=== PATIENT | female | born 1985 | race Caucasian/White ===

== ENCOUNTER 2019-03-17 11:54 | Observation (INO) | payer OTHER ==
[~2019-03-17] VITALS: Ht 167.6 cm; Wt 108.5 kg
[2019-03-17] MEDS ORDERED: ZOLO25TA PO (12:14)
[2019-03-17] MEDS ORDERED: METOCLOPRAMIDE INJ 10MG/2ML VIAL (J2765) IV ONE (13:30)
[2019-03-17] MEDS ORDERED: NS 1,000 ML IV ONE (13:30)
[2019-03-17 14:20] LABS: BASO % 0.2 % (0.0-1.0); EOS # 0.1 10^3/uL (0.0-0.50); EOS % 0.7 % (0.0-3.0); HEMATOCRIT 37.4 % (36.0-47.0); HEMOGLOBIN 12.5 g/dl (12.0-15.5); LYMPH # 1.6 10^3/uL (1.5-4.5); LYMPH % 17.4 % (24.0-44.0); MEAN CORPUSCULAR HEMOGLOBIN 31.8 pg (27.0-33.0); MEAN CORPUSCULAR HGB CONC 33.4 g/dl (32.0-36.5); MEAN CORPUSCULAR VOLUME 95.2 fl (80.0-96.0); MONO # 0.5 10^3/uL (0.0-0.8); MONO % 5.7 % (0.0-5.0); NEUTROPHILS # 6.7 10^3/uL (1.8-7.7); NEUTROPHILS % 74.9 % (36.0-66.0); PLATELET COUNT, AUTOMATED 198 10^3/uL (150-450); RED BLOOD COUNT 3.93 10^6/uL (4.00-5.40)
[2019-03-17 14:29] LABS: INR 0.93; PROTHROMBIN TIME 12.6 SECONDS (12.1-14.4)
[2019-03-17 14:30] LABS: PARTIAL THROMBOPLASTIN TIME 26.1 SECONDS (25.4-37.6)
[2019-03-17 14:57] LABS: ALBUMIN 2.8 GM/DL (3.2-5.2); ALT/SGPT 17 U/L (12-78); BILIRUBIN,TOTAL 0.3 MG/DL (0.2-1.0); BLOOD UREA NITROGEN 10 MG/DL (7-18); CALCIUM LEVEL 8.9 MG/DL (8.5-10.1); CARBON DIOXIDE LEVEL 20 MEQ/L (21-32); CHLORIDE LEVEL 106 MEQ/L (98-107); CREATININE FOR GFR 0.39 MG/DL (0.55-1.30); FREE T4 0.85 NG/DL (0.76-1.46); GLOMERULAR FILTRATION RATE > 60.0 (>60); GLUCOSE, FASTING 71 MG/DL (70-100); SODIUM LEVEL 137 MEQ/L (136-145); TOTAL PROTEIN 6.1 GM/DL (6.4-8.2)
[2019-03-17] MEDS ORDERED: METOCLOPRAMIDE INJ 10MG/2ML VIAL (J2765) IV PRN (15:30)
--- NOTE | 2019-03-17 15:51 | REP ---
MRA BRAIN WITHOUT CONTRAST: HISTORY: Infarction. 3D [id number] MR angiography was performed at the level of the [place]. There is no aneurysm or arteriovenous malformation. Mild atherosclerotic disease involves a branch of the right middle cerebral artery trifurcation. Major intracranial vessels are patent. The left vertebral artery is dominant. IMPRESSION: 1. There is no aneurysm or arteriovenous malformation.2. Atherosclerotic disease as described above. Electronically Signed by Atif Gatica MD 03/17/2019 03:58 P
--- NOTE | 2019-03-17 15:51 | HPEPDOC ---
General Date of Admission March 17, 2019 at 15:21 Date of Service: March 17, 2019 Attending Physician: SHANTI ZELAYA MD Chief Complaint The patient is a 34-year-old female admitted with a reason for visit of Migrane Aura Without Headache. Source: Patient, Family Exam Limitations: No limitations Timing/Duration: Unsure Severity: Severe Associated Symptoms: Nausea, Vomiting, Dizziness History of Present Illness 33 years old, 28 weeks , white female with no other past medical history presented with numbness of face, arm flutters in the eyes. Dizziness with nausea, vomiting and headache and decided to come to ER, which she is being admitted with migraine headache versus TIA in and for observation. Patient is clinically much better now. No weakness. Sensory or motor loss. No chest pain, shortness of breath, etc. Home Medications Scheduled No122/Iron/Folic Acid ( Multi Tablet) 1 Each Tablet, 1 TAB PO QHS, (Reported) Sertraline Hcl (Zoloft) 25 Mg Tablet, 25 MG PO DAILY, (Reported) Scheduled PRN Acetaminophen (Tylenol Extra Strength) 500 Mg Tablet, 1,000 MG PO TID PRN for PAIN, (Reported) Allergies Coded Allergies: No Known Allergies (Unverified , 03/17/19) Past Medical History Medical History None Surgical History Right wrist surgery Family History Significant Family History: No pertinent family hx Social History * Smoker: Denies Alcohol: Denies Drugs: denies A-FIB/CHADSVASC A-FIB History Current/History of A-Fib/PAF?: No Current Oral Anticoagulant The: No Review of Systems Constitutional: Reports: Other (headache) Eyes: Denies: Pain, Vision change, Conjunctivae inflammation, Eyelid inflammation, Redness, Other ENT: Denies: Head Aches, Ear Pain, Dysphagia, Sinus Congestion, Post Nasal Drip, Sore Throat, Epistaxis, Other Symptoms Skin: Denies: Rash, Lesions, Jaundice, Bruising, Itching, Dry, Breakdown, Nail Changes, Other Pulmonary: Denies: Dyspnea, Cough, Pleuritic Chest Pain, Other Symptoms Cardiovascular: Denies: Chest Pain, Palpitations, Orthopnea, Paroxysmal Noc. Dyspnea, Edema, Lt Headedness, Other Symptoms Gastrointestinal: Reports: Nausea, Vomiting; Denies: Abdominal Pain, Diarrhea, Constipation, Melena, Hematochezia, Other Symptoms Genitourinary: Denies: Dysuria, Frequency, Incontinence, Hematuria, Retention, Other Symptoms Hematologic: Denies: Bruising, Bleeding Excessively, Petecchia, Purpura, Enlarged Lymph Nodes, Other Hematologic Endocrine: Denies: Polydipsia, Polyphagia, Polyuria, Heat Intolerance, Cold Intolerance, Other Endocrine Sx Musculoskeletal: Denies: Neck Pain, Back Pain, Shoulder Pain, Arm Pain, Hand Pain, Leg Pain, Foot Pain, Joint Pain, Muscle Pain, Spasms, Other Symptoms Neurological: Reports: Other Symptoms (, dizziness); Denies: Weakness, Numbness, Incoordination, Change in speech, Confusion, Seizures Psych: Denies: Mood Normal, Anxiety, Depression, Memory Issues, Thoughts of Self Harm, Anger, Thoughts of Harming Other, Other Psych Physical Examination General Exam: Positive: Alert, Cooperative Eye Exam: Positive: PERRLA, Conjunctiva & lids normal ENT Exam: Positive: Atraumatic Neck Exam: Positive: Supple Chest Exam: Positive: Clear to auscultation, Normal air movement Heart Exam: Positive: Rate Normal, Normal S1, Normal S2 Abdomen Exam: Positive: Normal bowel sounds Extremity Exam: Positive: Clubbing Skin Exam: Positive: Nl turgor and temperature Neuro Exam: Positive: Normal Gait, Cranial Nerves 3-12 NL, Reflexes 2+ Psych Exam: Positive: Mental status NL, Mood NL Vital Signs Vital Signs Date Time Temp Pulse Resp B/P (MAP) Pulse Ox O2 Delivery O2 Flow Rate FiO2 03/17/19 14:32 91 122/72 (89) 93 128/69 (88) 93 126/66 (86) 03/17/19 14:30 98 03/17/19 11:55 97.6 17 Room Air Laboratory Data Labs 24H Laboratory Tests 2 03/17/19 14:03: Immature Granulocyte % (Auto) 1.1, White Blood Count 9.0, Red Blood Count 3.93L, Hemoglobin 12.5, Hematocrit 37.4, Mean Corpuscular Volume 95.2, Mean Corpuscular Hemoglobin 31.8, Mean Corpuscular Hemoglobin Concent 33.4, Red Cell Distribution Width 13.2, Platelet Count 198, Neutrophils (%) (Auto) 74.9H, Lymphocytes (%) (Auto) 17.4L, Monocytes (%) (Auto) 5.7H, Eosinophils (%) (Auto) 0.7, Basophils (%) (Auto) 0.2, Neutrophils # (Auto) 6.7, Lymphocytes # (Auto) 1.6, Monocytes # (Auto) 0.5, Eosinophils # (Auto) 0.1, Basophils # (Auto) 0.0, Nucleated Red Blood Cells % (auto) 0.0, Prothrombin Time 12.6, Prothromb Time International Ratio 0.93, Activated Partial Thromboplast Time 26.1, Anion Gap 11, Glomerular Filtration Rate > 60.0, Blood Urea Nitrogen 10, Creatinine 0.39L, Sodium Level 137, Potassium Level 4.0, Chloride Level 106, Carbon Dioxide Level 20L, Calcium Level 8.9, Aspartate Amino Transf (AST/SGOT) 12, Alanine Aminotransferase (ALT/SGPT) 17, Alkaline Phosphatase 65, Total Bilirubin 0.3, Total Protein 6.1L, Albumin 2.8L, Albumin/Globulin Ratio 0.85L, Thyroid Stimulating Hormone (TSH) 1.440, Free Thyroxine 0.85 CBC/BMP Laboratory Tests 03/17/19 14:03 Red Blood Count 3.93 L, Mean Corpuscular Volume 95.2, Mean Corpuscular Hemoglobin 31.8, Mean Corpuscular Hemoglobin Concent 33.4, Red Cell Distribution Width 13.2, Neutrophils (%) (Auto) 74.9 H, Lymphocytes (%) (Auto) 17.4 L, Monocytes (%) (Auto) 5.7 H, Eosinophils (%) (Auto) 0.7, Basophils (%) (Auto) 0.2, Neutrophils # (Auto) 6.7, Lymphocytes # (Auto) 1.6, Monocytes # (Auto) 0.5, Eosinophils # (Auto) 0.1, Basophils # (Auto) 0.0, Calcium Level 8.9, Aspartate Amino Transf (AST/SGOT) 12, Alanine Aminotransferase (ALT/SGPT) 17, Alkaline Phosphatase 65, Total Bilirubin 0.3, Total Protein 6.1 L, Albumin 2.8 L Problems (1) Migraine headache Status: Acute Problem Text: Most likely migraine headache. Doubt TIA, as this no clinical history consistent with possible TIA or stroke Neurolo and OB consult were called from ED and will be seen in the hospital MRI and MRA were done reports are still pending IV fluid normal saline at 100 mL per hour Reglan 1 g every 6 hours when necessary , Tylenol 650 mg by mouth every 4 hours when necessary Observation for 24 hours DVT prophylaxis with bilateral SCDs Possible discharge in a.m. Plan / VTE VTE Prophylaxis Ordered?: Yes SHANTI ZELAYA MD March 17, 2019 15:51
[2019-03-17] MEDS ORDERED: ACET-897 PO (15:52)
[2019-03-17] MEDS ORDERED: MULTTAB20 PO (15:52)
--- NOTE | 2019-03-17 15:55 | REP ---
MR Brain without contrast HISTORY: Infarction Several punctate areas of increased signal intensity on T2-weighted images is present in the subcortical white matter of the right frontal lobe. There is no intraparenchymal hemorrhage, infarct, mass or midline shift. The cerebellar tonsils extend 3 mm inferior through the foramen magnum. The ventricular system is normal in appearance. There is no extra cerebral collection. The sinuses are clear. IMPRESSION: There are several punctate areas of increased signal intensity in the subcortical white matter of the right frontal lobe. This is a nonspecific finding. Electronically Signed by Atif Gatica MD 03/17/2019 03:47 P
--- NOTE | 2019-03-17 15:59 | REP ---
MRA Brain without contrast History: Infarction 3-D phase contrast MR angiography was performed with a velocity encoding of 20 cm/sec. There are no filling defects in the deep venous system or dural sinuses. There is no sinus thrombosis. There are no stenotic lesions. Impression: There is no sinus thrombosis. Electronically Signed by Atif Gatica MD 03/17/2019 03:50 P
[2019-03-17] MEDS ORDERED: ACETAMINOPHEN TAB 650MG DOSE (2X325MG) PO PRN (16:00)
[2019-03-17 16:45] VITALS: BP 128/69
--- NOTE | 2019-03-17 18:04 | CR.PDOC ---
General Date of Consultation: March 17, 2019 Referring Provider: SHANTI ZELAYA MD Attending Physician: JASON OCAMPO MD Consultation 28 weeks . Seen yesterday in the OB clinic. Presented with numbness of face, fluttering in the eyes, dizziness with nausea, vomiting and headache and decided to come to the ER, was admitted with migraine headache versus TIA in and for observation by the hospitalist service. Has been seen by the consulting Neurologist. She states she is feeling much better now. No weakness. Sensory or motor loss. No chest pain, shortness of breath, etc. Feeling the baby move all the time, no VB or abnl vag d/c and no cramping/contraction pains. Spoke with the neurologist and he has reviewed her scans/reads and is confident of no cavernous sinus thrombosis or other intracranial vessel issue. He is confident this is a complex migraine. Of note, pt states these have been happening more frequently the last 3 weeks but has not really told her OB provider about it. a/p: Complex migraine. Many thx to the hospitalist service for admitting her, also appreciate the neurologists's input. I believe she can go home even tonight now that her w/u is complete and I rec starting Mag Oxide 400 mg BID for LYNN propohyhlaxis/hopeful prevention in , also will consult [facility] Botox for [facility]'s service at [place], very safe in preg and very effective as well. Will also rx fioricet for breakthru LYNN pain, d/w pt appropriate use (no driving/heavy machinery, etc). Sessions Vital Signs/I&O Vital Signs Date Time Temp Pulse Resp B/P (MAP) Pulse Ox O2 Delivery O2 Flow Rate FiO2 03/17/19 16:45 97.9 91 19 128/69 (88) 99 03/17/19 16:24 Room Air Laboratory Data Labs 24H Laboratory Tests 2 03/17/19 14:03: Immature Granulocyte % (Auto) 1.1, White Blood Count 9.0, Red Blood Count 3.93L, Hemoglobin 12.5, Hematocrit 37.4, Mean Corpuscular Volume 95.2, Mean Corpuscular Hemoglobin 31.8, Mean Corpuscular Hemoglobin Concent 33.4, Red Cell Distribution Width 13.2, Platelet Count 198, Neutrophils (%) (Auto) 74.9H, Lymphocytes (%) (Auto) 17.4L, Monocytes (%) (Auto) 5.7H, Eosinophils (%) (Auto) 0.7, Basophils (%) (Auto) 0.2, Neutrophils # (Auto) 6.7, Lymphocytes # (Auto) 1.6, Monocytes # (Auto) 0.5, Eosinophils # (Auto) 0.1, Basophils # (Auto) 0.0, Nucleated Red Blood Cells % (auto) 0.0, Prothrombin Time 12.6, Prothromb Time International Ratio 0.93, Activated Partial Thromboplast Time 26.1, Anion Gap 11, Glomerular Filtration Rate > 60.0, Blood Urea Nitrogen 10, Creatinine 0.39L, Sodium Level 137, Potassium Level 4.0, Chloride Level 106, Carbon Dioxide Level 20L, Calcium Level 8.9, Aspartate Amino Transf (AST/SGOT) 12, Alanine Aminotransferase (ALT/SGPT) 17, Alkaline Phosphatase 65, Total Bilirubin 0.3, Total Protein 6.1L, Albumin 2.8L, Albumin/Globulin Ratio 0.85L, Thyroid Stimulating Hormone (TSH) 1.440, Free Thyroxine 0.85 CBC/BMP Laboratory Tests 03/17/19 14:03 Red Blood Count 3.93 L, Mean Corpuscular Volume 95.2, Mean Corpuscular Hemoglobin 31.8, Mean Corpuscular Hemoglobin Concent 33.4, Red Cell Distribution Width 13.2, Neutrophils (%) (Auto) 74.9 H, Lymphocytes (%) (Auto) 17.4 L, Monocytes (%) (Auto) 5.7 H, Eosinophils (%) (Auto) 0.7, Basophils (%) (Auto) 0.2, Neutrophils # (Auto) 6.7, Lymphocytes # (Auto) 1.6, Monocytes # (Auto) 0.5, Eosinophils # (Auto) 0.1, Basophils # (Auto) 0.0, Calcium Level 8.9, Aspartate Amino Transf (AST/SGOT) 12, Alanine Aminotransferase (ALT/SGPT) 17, Alkaline Phosphatase 65, Total Bilirubin 0.3, Total Protein 6.1 L, Albumin 2.8 L Allergies Coded Allergies: No Known Allergies (Unverified , 03/17/19) Home Medications Scheduled No122/Iron/Folic Acid ( Multi Tablet) 1 Each Tablet, 1 TAB PO QHS, (Reported) Sertraline Hcl (Zoloft) 25 Mg Tablet, 25 MG PO DAILY, (Reported) Scheduled PRN Acetaminophen (Tylenol Extra Strength) 500 Mg Tablet, 1,000 MG PO TID PRN for PAIN, (Reported) JASON OCAMPO MD March 17, 2019 18:04
[2019-03-17] MEDS: NS 1,000 ML IV SCH (18:53)
[2019-03-17 20:00] VITALS: BP 117/58
[2019-03-18] MEDS: NS 1,000 ML IV SCH (03:06)
--- NOTE | 2019-03-18 06:08 | ECGEPIP ---
[facility] - ED Test Date: 2019-03-17 Pat Name: ZEN OLVERA Department: Room: - Gender: F [employer]: [place] : 1985 Requested By: LUKAS Chávez Order Number: [id number] Reading MD: Arvin Randall Measurements Intervals [place] Rate: 86 P: 31 DC: 146 QRS: 44 QRSD: 79 T: 29 QT: 376 QTc: 451 Interpretive Statements SINUS RHYTHM NO PRIORS FOR COMPARISON Electronically Signed on 03-18-2019 6:08:04 EDT by Arvin Randall
[2019-03-18 08:00] VITALS: BP 130/64
--- NOTE | 2019-03-18 11:00 | DS.PDOC ---
Discharge Summary General Date of Admission March 17, 2019 at 15:21 Date of Discharge 03/18/19 Attending Physician: SHANTI ZELAYA MD Discharge Summary PROCEDURES PERFORMED DURING STAY: None. ADMITTING DIAGNOSES: 1. Headache, numbness of face. DISCHARGE DIAGNOSES: 1. Migraine headache. COMPLICATIONS/CHIEF COMPLAINT: Migrane Aura With Headache. HISTORY OF PRESENT ILLNESS: 33 years old, 28 weeks , white female with no other past medical history presented with numbness of face, arm flutters in the eyes. Dizziness with nausea, vomiting and headache and decided to come to ER, which she is being admitted with migraine headache versus TIA in and for observation. Patient is clinically much better now. No weakness. Sensory or motor loss. No chest pain, shortness of breath, etc. . HOSPITAL COURSE: Patient was admitted with the headache, possible numbness to rule out TIA versus migraine headache. Patient had MRI of the brain and MRA done which was essentially within normal limits. Patient was seen by neurology and by OB. Discussed with OB patient is evidence of migraine and she will be discharged home today as she is completely asymptomatic at the present time. Patient has no headache, no nausea, vomiting and can be discharged home. Follow with her OB, sessions as an outpatient. Neurology consult. Please see the report dictated above. DISCHARGE MEDICATIONS: Please see below. ALLERGIES: Please see below. PHYSICAL EXAMINATION ON DISCHARGE: VITAL SIGNS: Please see below. GENERAL: Within normal limits. HEENT: PERRLA NECK:, Supple, no JVD CARDIOVASCULAR EXAMINATION:. S1, S2, regular RESPIRATORY EXAMINATION: Clear to A&P ABDOMINAL EXAMINATION:. Soft, nontender, bowel sound present EXTREMITIES:. No clubbing, cyanosis or edema SKIN: Within normal limits with NEUROLOGICAL EXAMINATION: Normal. No focal motor or sensory deficit PSYCHIATRIC EXAMINATION: Normal LABORATORY DATA: Please see below. IMAGING: As per EMR PROGNOSIS: Good ACTIVITY: As tolerated. DIET: Regular DISCHARGE PLAN: Home DISPOSITION: 01 Home, Self-Care. DISCHARGE INSTRUCTIONS: 1. As above. ITEMS TO FOLLOWUP ON ON OUTPATIENT: 1.. As above. DISCHARGE CONDITION: Stable. TIME SPENT ON DISCHARGE: Greater than 35 minutes. Vital Signs/I&Os Vital Signs Date Time Temp Pulse Resp B/P (MAP) Pulse Ox O2 Delivery O2 Flow Rate FiO2 03/18/19 08:00 98.5 93 17 130/64 (86) 97 03/17/19 16:24 Room Air I&O- Last 24 Hours up to 6 AM 03/18/19 06:00 Intake Total 2485 ml Output Total 1000 ml Balance 1485 ml Laboratory Data Labs 24H Laboratory Tests 2 03/17/19 14:03: Immature Granulocyte % (Auto) 1.1, White Blood Count 9.0, Red Blood Count 3.93L, Hemoglobin 12.5, Hematocrit 37.4, Mean Corpuscular Volume 95.2, Mean Corpuscular Hemoglobin 31.8, Mean Corpuscular Hemoglobin Concent 33.4, Red Cell Distribution Width 13.2, Platelet Count 198, Neutrophils (%) (Auto) 74.9H, Lymphocytes (%) (Auto) 17.4L, Monocytes (%) (Auto) 5.7H, Eosinophils (%) (Auto) 0.7, Basophils (%) (Auto) 0.2, Neutrophils # (Auto) 6.7, Lymphocytes # (Auto) 1.6, Monocytes # (Auto) 0.5, Eosinophils # (Auto) 0.1, Basophils # (Auto) 0.0, Nucleated Red Blo od Cells % (auto) 0.0, Prothrombin Time 12.6, Prothromb Time International Ratio 0.93, Activated Partial Thromboplast Time 26.1, Anion Gap 11, Glomerular Filtration Rate > 60.0, Blood Urea Nitrogen 10, Creatinine 0.39L, Sodium Level 137, Potassium Level 4.0, Chloride Level 106, Carbon Dioxide Level 20L, Calcium Level 8.9, Aspartate Amino Transf (AST/SGOT) 12, Alanine Aminotransferase (ALT/SGPT) 17, Alkaline Phosphatase 65, Total Bilirubin 0.3, Total Protein 6.1L, Albumin 2.8L, Albumin/Globulin Ratio 0.85L, Thyroid Stimulating Hormone (TSH) 1.440, Free Thyroxine 0.85 CBC/BMP Laboratory Tests 03/17/19 14:03 Red Blood Count 3.93 L, Mean Corpuscular Volume 95.2, Mean Corpuscular Hemoglobin 31.8, Mean Corpuscular Hemoglobin Concent 33.4, Red Cell Distribution Width 13.2, Neutrophils (%) (Auto) 74.9 H, Lymphocytes (%) (Auto) 17.4 L, Monocytes (%) (Auto) 5.7 H, Eosinophils (%) (Auto) 0.7, Basophils (%) (Auto) 0.2, Neutrophils # (Auto) 6.7, Lymphocytes # (Auto) 1.6, Monocytes # (Auto) 0.5, Eosinophils # (Auto) 0.1, Basophils # (Auto) 0.0, Calcium Level 8.9, Aspartate Amino Transf (AST/SGOT) 12, Alanine Aminotransferase (ALT/SGPT) 17, Alkaline Phosphatase 65, Total Bilirubin 0.3, Total Protein 6.1 L, Albumin 2.8 L Discharge Medications Scheduled No122/Iron/Folic Acid ( Multi Tablet) 1 Each Tablet, 1 TAB PO QHS, (Reported) Sertraline Hcl (Zoloft) 25 Mg Tablet, 25 MG PO DAILY, (Reported) Scheduled PRN Acetaminophen (Tylenol Extra Strength) 500 Mg Tablet, 1,000 MG PO TID PRN for PAIN, (Reported) Allergies Coded Allergies: No Known Allergies (Unverified , 03/17/19) SHANTI ZELAYA MD March 18, 2019 11:00
--- NOTE | 2019-03-19 09:50 | CR ---
DATE OF CONSULTATION: 03/17/2019 REFERRING PROVIDER: Dr. Mak Tompkins REASON FOR CONSULTATION: Is suspected complex migraine versus transient ischemic attack (TIA). The patient is a 34-year-old, 28-week-old female, with past medical history significant for migraines. The patient states that earlier in the day she developed a significant headache. The patient states that she had an obstetrics (OB) appointment earlier in the day. She started seeing spots out of her left visual field. She has seen these before. She has had a few of these same similar headaches over the last few weeks. The patient took a shower, got ready to leave. She was driving to her work. She then developed a sensation of numbness that started in her fingertips and traveled up her left hand and arm to her face. The patient states that this took several minutes for the paresthesias to expand. The patient started to panic and called her . The patient was admitted to [facility]. MRI of the brain was negative for stroke. MR venogram was negative for any cerebral venous thrombus and MR angiogram was negative any aneurysm. The patient subsequently was given IV fluids and medication. Her headaches then improved. Symptoms of numbness have completely resolved. The patient vision is also improved. Given the nature of the cortical depression and slow-moving paresthesias up her hand and arm to her face the patient likely had a complex migraine as opposed to a TIA. The patient does not need to be on stroke prophylactic dose of aspirin due to this particular symptom. She could benefit from magnesium oxide 4 mg, riboflavin 200 mg daily while to prevent similar migraines. The patient is not interested in any other prescription strength migraine prophylactic medicine while she is at this time. ALLERGIES: None. PRESENT MEDICATIONS: Sertraline 25 mg by mouth every day. vitamins. PAST MEDICAL HISTORY: Migraine headaches. PAST SURGICAL HISTORY: Right wrist surgery. FAMILY HISTORY: Noncontributory. REVIEW OF SYSTEMS: 14-point review of systems was obtained and is negative except as per HPI. SOCIAL HISTORY: The patient is a former smoker and denies use of any alcohol or illicit drugs. PHYSICAL EXAMINATION: Blood pressure is 125/60, pulse rate 98, respiratory rate is 18, temperature is 98.6 degrees Fahrenheit, oxygenation 97% on room air. The patient is awake, alert, oriented to person, place and time. Speech language comprehension and repetition are intact. Pupils are 3 mm round, reactive to light. Extraocular movements are intact in all directions. Sensation V1, V2, V3 is intact to light touch. No facial asymmetry to activation. Palate elevates symmetrically. Tongue is midline. No weakness of sternocleidomastoids bilaterally. Hearing is subjectively equal to finger rub. There is no pronator drift. Strength is 5/5 including bilateral deltoids, biceps, triceps, handgrip, iliopsoas, quadriceps and tibialis. Deep tendon reflexes are 2+ throughout. Babinski signs are absent. Sensory is intact to light touch in all four extremities. Coordination: Normal [id number] without any signs of ataxia or dysmetria. Gait deferred. ASSESSMENT: 1. Complex migraine with left-sided hemisensory loss and left eye visual loss. Patient has migraines with aura. The patient was noted to have mild right MCA atherosclerosis. The patient should optimize hyperlipidemia management as an outpatient. Recommend starting magnesium oxide 4 mg by mouth daily, riboflavin 200 mg by mouth every day for migraine prophylaxis. The patient can follow in the neurology clinic as an outpatient. The patient seems to have returned back to baseline without any neurological deficit at this time. The patient can be discharged when cleared by OB and the medical team.
== END 2019-03-18 09:50 | disposition home or self-care (01) ==
LOC: M ED 11:54 → M ED INP 15:21 → M PED 16:45
PROVIDERS: ADMIT Internal Medicine; ATTEND Internal Medicine
DX: O99.352 Diseases of the nervous system complicating pregnancy, second trimester (principal); G43.809 Other migraine, not intractable, without status migrainosus; I67.2 Cerebral atherosclerosis; R11.2 Nausea with vomiting, unspecified; Z3A.28 28 weeks gestation of pregnancy; Z79.899 Other long term (current) drug therapy; Z87.891 Personal history of nicotine dependence
CPT/HCPCS: 70544; 70551; 80053; 84439; 84443; 85025; 85610; 85730; 93005; 93041; 94760; 96361; 96374; 99285; J2765

== ENCOUNTER 2019-06-04 07:09 | Inpatient (IN) | payer OTHER ==
[~2019-06-04] VITALS: Ht 167.6 cm; Wt 109.3 kg
[2019-06-04] VITALS (13 sets, daily range): BP systolic 90–139; BP diastolic 49–73
[~2019-06-04 07:09] MED LIST: ACET-897 PO; MULTTAB20 PO; ZOLO25TA PO
[2019-06-04] MEDS ORDERED: TUMS500C PO (07:33)
--- NOTE | 2019-06-04 09:25 | HPEPDOC ---
Obstetrical History & Physical General Date of Admission Jun 04, 2019 at 07:09 History of Present Illness 34 yo at 39+3 weeks gestation by LMP of 01Sep2018 c/w 9+2 week US on presents to L&D today for an IOL for GDMA1 and AMA. Paty reports feeling well today and has no complaints. She denies any vaginal bleeding, leakage of fluid or contraction pain. She endorses excellent movement. Chief Complaint: Induction of labor Information Provided By: Patient Age: 34 : 3 Term: 1 Pre-term: 0 Abortions: 1 Livin Care Care: Good Care Dating Final EDC: Jun 08, 2019 Final EDC for Daily Update: Jun 08, 2019 Final EDC by: LMP (JAILENE by LMP of 01Sep2018), 1st trimester (US) LMP: Sep 01, 2018 1st Trimester Date: Nov 03, 2018 (9+2 week US on [id number] c/w LMP dating) Antepartum Course Diagnos(e)s AMA ---> low risk quad screen GDMA1 --> well controlled through diet Obesity FOB with mitral valve prolapse ---> echo normal Depression --> stable on zoloft Complex migraines --> hospital admission in February Past Medical History Past Obstetrical History : Past Obstetrical History: Multigravida ( in 2009, pre e, pelvis proven to 7lbs 14oz) Type of Delivery: Spontaneous Vaginal Del. Complications: No REAM CUTTER History: No pertinent history Past Medical History Medical History Depression/anxiety --> stable on zoloft overweight Complex migraines History of Pre E Surgical History: [place] teeth, Other (Back surgery, wrist surgery) Family History Significant Family History: No pertinent family hx Social History Marital Status: Family situation: Spouse/partner home Psychosocial History: Anxiety, Depression * Smoker: non-smoker Alcohol: Denies Drugs: denies Imunizations Tdap status: current Influenza Status: current Allergies Coded Allergies: No Known Allergies (Unverified , 03/17/19) Medications Scheduled No122/Iron/Folic Acid ( Multi Tablet) 1 Each Tablet, 1 TAB PO QHS Sertraline Hcl (Zoloft) 25 Mg Tablet, 25 MG PO DAILY Scheduled PRN Acetaminophen (Tylenol Extra Strength) 500 Mg Tablet, 1,000 MG PO TID PRN for PAIN Calcium Carbonate (Tums) 200 Mg Tab.chew, 500 MG PO PRN PRN for INDIGESTION Physical Examination Physical Examination GENERAL: Alert and oriented times three. ABDOMEN: Gravid and non-tender to touch. FETUS: Is vertex (VTX) by sterile vaginal examination (SVE) EXTREMITIES: No edema. Vital Signs/I&O Vital Signs Date Time Temp Pulse Resp B/P (MAP) Pulse Ox O2 Delivery O2 Flow Rate FiO2 06/04/19 07:35 97.8 92 18 129/65 (86) Laboratory Data 24H LABS Laboratory Tests 2 06/04/19 07:14: Serology Scanned Report Hepatitis B Testing Urine Culture: No Growth Pertinent Laboratoy Data Blood Type: A+ RBC Antibody Screen: Negative HIV: Negative Hepatitis B: Negative Hepatitis C: Unknown Rapid Plasma Reagin: Nonreactive Rubella: Immune Varicella: Immune Chlamydia/Gonorrhea: Negative Group B Streptococcus: Negative Quad Screen Test: Negative Cystic Fibrosis: Negative Glucose Tolerance Test: 202 (Diagnosed with GDM based on 1hr GTT of 202. Well controlled through diet) Anatomy Ultrasound Placenta Location: Posterior Normal Anatomy: Yes Placenta Previa: No Other Ultrasounds Growth scan on [id number] for S>D revealed fetus with EFW in 61st percentile Steroid Therapy Steroid Therapy: No Vaginal Examination Dilation: 1cm Effacement: 50% Station: -3 Cervical Consistency: Medium Cervical Position: Posterior Presentation: Cephalic presentation Position: Vertex (occiput) Assessment Heart Rate (FHR): 130 Variability: Moderate Accelerations: Positive Decelerations: None Tocometer Contractions: Yes Frequency: irregular Assessment/Plan Assessment 34 yo at 39+3 weeks gestation presents to L&D for an IOL for AMA and GDMA1. Plan Admit to L&D for an IOL for AMA and GDMA1. Apply IV fluids. Fingerstick blood glucose. GBS negative. Cervix unfavorable. Will start with PO cytotec for induction. Analgesia per patient desire. Anticipate . DO MARGO Ruiz CHRISTOPHER J. DO Jun 04, 2019 09:25
[2019-06-04] MEDS ORDERED: miSOPROStol 50 MCG 1/2 TAB (S0191) PO ONE ×2 (09:30→14:45)
[2019-06-04 10:49] LABS: HEMATOCRIT 38.6 % (36.0-47.0); HEMOGLOBIN 12.9 g/dl (12.0-15.5); MEAN CORPUSCULAR HEMOGLOBIN 31.5 pg (27.0-33.0); MEAN CORPUSCULAR HGB CONC 33.4 g/dl (32.0-36.5); MEAN CORPUSCULAR VOLUME 94.1 fl (80.0-96.0); PLATELET COUNT, AUTOMATED 166 10^3/uL (150-450); WHITE BLOOD COUNT 9.1 10^3/uL (4.0-10.0)
--- NOTE | 2019-06-04 14:45 | IPNPDOC ---
Text Note Date of Service The patient was seen on 06/04/19. NOTE Presented to room for assessment. Cervix: 2-3/50/-3, posterior, still very thick. Membrane stripping performed. FHR remains Cat I. Minimal cervical change, and mostly stretched cervix to 2-3cm on membrane stripping. Still very thick and posterior. Will proceed with another dose of cytotec. DO Albino VS,Christiano, I+O VS, Christiano, I+O Laboratory Tests 06/04/19 10:26 Red Blood Count 4.10, Mean Corpuscular Volume 94.1, Mean Corpuscular Hemoglobin 31.5, Mean Corpuscular Hemoglobin Concent 33.4, Red Cell Distribution Width 14.2 Vital Signs Date Time Temp Pulse Resp B/P (MAP) Pulse Ox O2 Delivery O2 Flow Rate FiO2 06/04/19 14:22 96.5 86 16 134/64 (87) GOVIND ARAGON DO Jun 04, 2019 14:45
--- NOTE | 2019-06-04 19:37 | IPNPDOC ---
Text Note Date of Service The patient was seen on 06/04/19. NOTE SBAR from Dr Posada at 1900, s/p cytotec X2 FHT Cat 1, reg ctx's but not feeling them Cx 3/75/-2/vtx well applied Start pitocin Anesthesia consult due to prior h/o high epidural and also back surgery L5 Sessions VS,Christiano, I+O VS, Christiano, I+O Laboratory Tests 06/04/19 10:26 Red Blood Count 4.10, Mean Corpuscular Volume 94.1, Mean Corpuscular Hemoglobin 31.5, Mean Corpuscular Hemoglobin Concent 33.4, Red Cell Distribution Width 14.2 Vital Signs Date Time Temp Pulse Resp B/P (MAP) Pulse Ox O2 Delivery O2 Flow Rate FiO2 06/04/19 17:09 97.0 83 18 129/61 (83) SESSIONS,JASON Grady MD Jun 04, 2019 19:37
[2019-06-04] MEDS ORDERED: OXYTOCIN DRIP 30 UNITS in APPROPRIATE DILUENT 1 EA IV SCH (19:45)
[2019-06-04] MEDS: LR 1,000 ML IV SCH (19:57)
--- NOTE | 2019-06-04 23:47 | IPNPDOC ---
Text Note Date of Service The patient was seen on 06/04/19. NOTE Now on 14 mu/min pitocin Pain controlled, minimal Cx 80/-2 Doing fine, still latent Cont pitocin per SOP Recheck in 4 hrs, sooner prn Sessions VS,Christiano, I+O VS, Christiano I+O Laboratory Tests 06/04/19 10:26 Red Blood Count 4.10, Mean Corpuscular Volume 94.1, Mean Corpuscular Hemoglobin 31.5, Mean Corpuscular Hemoglobin Concent 33.4, Red Cell Distribution Width 14.2 Vital Signs Date Time Temp Pulse Resp B/P (MAP) Pulse Ox O2 Delivery O2 Flow Rate FiO2 06/04/19 22:55 88 18 112/57 (75) 06/04/19 20:57 98.0 SESSIONS,JASON Grady MD Jun 04, 2019 23:47
[2019-06-05] VITALS (36 sets, daily range): BP systolic 100–153; BP diastolic 51–78
[2019-06-05] MEDS: LR 1,000 ML IV SCH ×2 (03:42→05:38)
--- NOTE | 2019-06-05 04:48 | IPNPDOC ---
Text Note Date of Service The patient was seen on 06/05/19. NOTE Now on 20 mu/min pitocin Pain still well controlled Cx 4/80/-1 AROM with clear fluid Cont pitocin per SOP Recheck in 4 hrs, sooner prn SBAR to oncnisha BUTLER at 0700 Sessions MD LOUIS,Christiano, I+O VSChristiano I+O Laboratory Tests 06/04/19 10:26 Red Blood Count 4.10, Mean Corpuscular Volume 94.1, Mean Corpuscular Hemoglobin 31.5, Mean Corpuscular Hemoglobin Concent 33.4, Red Cell Distribution Width 14.2 Vital Signs Date Time Temp Pulse Resp B/P (MAP) Pulse Ox O2 Delivery O2 Flow Rate FiO2 06/05/19 03:26 95 18 100/56 (71) 06/05/19 00:07 98.6 I&O- Last 24 Hours up to 6 AM 06/05/19 06:00 Intake Total 960 ml Output Total 1900 ml Balance -940 ml SESSIONS,JASON Grady MD Jun 05, 2019 04:48
[2019-06-05] MEDS ORDERED: FENTANYL 2MCG/ML ROPIVACAINE 0.2% IN 0.9% NACL 100ML IVBAG As Ordered ONE (05:04)
[2019-06-05] MEDS ORDERED: ePHEDrine SULFATE 25 MG/5 ML(5MG/ML) SYRINGE IV PRN (06:30)
[2019-06-05] MEDS ORDERED: ONDANSETRON 4MG/2ML VIAL (J2405) IV PRN (06:30)
[2019-06-05] MEDS ORDERED: EPIDURAL COMMENT XX SCH (06:30)
[2019-06-05] MEDS ORDERED: FENTANYL/ROPIVACAINE/NACL BAG 100 ML EPIDURAL SCH (06:30)
[2019-06-05] MEDS ORDERED: EPIDURAL/PCA KEYS XX PRN (06:30)
[2019-06-05] MEDS ORDERED: NALOXONE INJ 0.4 MG/1 ML VIAL (J2310) IV PRN (06:30)
[2019-06-05] MEDS ORDERED: REFRIGERATOR IV KEYS XX PRN (06:30)
[2019-06-05] MEDS ORDERED: diphenhydrAMINE INJ 50MG/ML VIAL (J1200) IV PRN (06:30)
[2019-06-05] MEDS ORDERED: LACTATED RINGER'S 1000 ML IV PRN (06:30)
[2019-06-05] MEDS ORDERED: RHOGAM 300 MCG (1500 IU) INJ (J2790) IM SCH (09:00)
[2019-06-05] MEDS ORDERED: IBUPROFEN 600 MG TAB PO PRN (09:00)
[2019-06-05] MEDS ORDERED: METHYLERGONOVINE MALEATE 0.2 MG TAB PO PRN (09:00)
[2019-06-05] MEDS ORDERED: MEASLES,MUMPS,RUBELLA VACCINE INJ (MMR-II) (90707) SC SCH (09:00)
[2019-06-05] MEDS ORDERED: ACETAMINOPHEN TAB 650MG DOSE (2X325MG) PO PRN (09:00)
[2019-06-05] MEDS ORDERED: MOM 30ML SUSPENSION UDC PO PRN (09:00)
[2019-06-05] MEDS ORDERED: oxyCODONE 5MG TAB PO PRN (09:00)
[2019-06-05] MEDS ORDERED: DIBUCAINE 1% OINTMENT 30GM TOP PRN (09:00)
[2019-06-05] MEDS ORDERED: ACETAMINOPHEN 500 MG TAB PO PRN (09:00)
[2019-06-05] MEDS ORDERED: cefoTEtan DISODIUM 2 GM in D5W MINI-BAG PLUS 50 ML IV ONE (09:00)
--- NOTE | 2019-06-05 09:21 | DNPDOC ---
[facility] Delivery Note Delivery Note DATE OF DELIVERY: 05 Jun 2019 PREDELIVERY DIAGNOSIS: 39-4/7 weeks' gestation, IOL for AMA. POST DELIVERY DIAGNOSIS: Delivered. PROCEDURE: Spontaneous vaginal delivery. DOCTOR OF NATUROPATHIC MEDICINE: Dr. Leach ANESTHESIA: Epidural. ESTIMATED BLOOD LOSS: 400 mL. FINDINGS: 8 pound 10 ounce male infant (3910g), Score 9/9, no nuchal cord times. DELIVERY SUMMARY: Patient is a 34-year-old 3 now para 2012 who was admitted to labor and delivery for IOL for AMA. Following an uncomplicated labor, she began pushing. With maternal effort, head delivered OA and restituted LAUREN. With gentle downward traction, right anterior shoulder delivered without difficulty followed shortly after by the posterior shoulder and corpus. No nuchal cord. was immediately placed on mom's abdomen. Spontaneous cry noted. After approx 1 minute, the cord was clamped x2 and cut by father of the baby. With gentle cord traction and suprapubic pressure, placenta delivered intact without trailing membranes. Fundus palpated firm at U+2 and lower uterine segment firm. No danielle catheter had been in place since her epidural, so straight cath was performed with return of about 400cc clear urine. Active bleeding noted from 3cMLL, rendered hemostatic with first stitch. External sphincter repaired end-to-end with 4 [id number] stitches using 0-vicryl. Rectal exam performed with continuous external sphincter palpated in 360 degrees. Gloves and gown changed. The remainder of the midline laceration was repaired in the usual fashion using 3-0 vicryl. Right labial laceration repaired with 4-0 vicryl. Fundus palpated firm at U and there was no active bleeding. Final rectal exam showed intact sphincter with no sutures palpated in the rectum. Patient received 2g Cefotetan for infection prophylaxis. Mom and infant left in stable condition. CLINT LEACH MD Jun 05, 2019 09:21
[2019-06-05] MEDS: PRENATAL VITAMINS CHEWABLE TABLET PO SCH (10:23)
[2019-06-05] MEDS: DOCUSATE SODIUM 100 MG CAP PO SCH ×2 (10:23→20:22)
[2019-06-05] MEDS: IBUPROFEN 800 MG TAB PO PRN ×2 (10:24→20:22)
[2019-06-05] MEDS ORDERED: SLF 3 ML SYR IV PRN (11:30)
[2019-06-05] MEDS: SERTRALINE HCL 25 MG TABLET PO SCH (11:49)
[2019-06-05] MEDS: SLF 3 ML SYR IV SCH ×2 (14:14→22:35)
[2019-06-06 05:47] VITALS: BP 101/57
[2019-06-06] MEDS: SLF 3 ML SYR IV SCH (06:18)
--- NOTE | 2019-06-06 07:53 | IPNPDOC ---
Progress Note Date of Service: Jun 06, 2019 Day#: 1 Progress Note SUBJECT: Paty is a 34-year-old 3 now Para 2012 status post uncompl icated spontaneous vaginal delivery at 39-4/7 weeks' at approximately 0750 hours on 05 Jun 2019 of a male 8 pounds 10 ounces (3910 grams) with post vaginal 3cMLL laceration and repair, doing well day # 1. She has been ambulating, voiding spontaneously without issue and tolerating regular diet. Breast feeding without issue. Reports lochia is scant. Patient is ambulating well. Reports some cramping with . Denies any pain. Voiding without difficulty, has not yet had a BM. Strongly desires discharge home as her family is there for extra help. OBJECTIVE: VITAL SIGNS: Within normal limits, afebrile. Alert and oriented times three. Abdomen: Fundus firm at U-2. Soft, NTTP. Minimal lochia. ASSESSMENT: Uncomplicated course thus far, normal vitals and benign phys exam. Meeting discharge criteria. PLAN: 1. Discharge to home today. 2. Tylenol and Motrin for pain. 3. Encourage breast feeding and ambulation. 4. Minipill for contraception for now 5. F/u 1 week for laceration check 6. Routine PP visit in 6 weeks in clinic. 7. Discussed return precautions at length. VS, I&O, 24H, Fishbone Vital Signs/I&O Vital Signs Date Time Temp Pulse Resp B/P (MAP) Pulse Ox O2 Delivery O2 Flow Rate FiO2 06/06/19 05:47 98.8 86 15 101/57 (72) 99 I&O- Last 24 Hours up to 6 AM 06/06/19 05:59 Intake Total 1330 ml Output Total 1300 ml Balance 30 ml CLINT LEACH MD Jun 06, 2019 07:52
[2019-06-06] MEDS ORDERED: COLA100C5 PO (08:11)
[2019-06-06] MEDS ORDERED: IBUP80TA PO (08:11)
[2019-06-06] MEDS: PRENATAL VITAMINS CHEWABLE TABLET PO SCH (09:03)
[2019-06-06] MEDS: DOCUSATE SODIUM 100 MG CAP PO SCH (09:03)
[2019-06-06] MEDS: SERTRALINE HCL 25 MG TABLET PO SCH (09:03)
== END 2019-06-06 14:00 | disposition home or self-care (01) | DRG 768 ==
LOC: M LDI 07:09 → M OBS 06-05 11:08
PROVIDERS: ADMIT Obstetrics & Gynecology; ATTEND General Practice
PROC: 3E0P7GC Introduction of Other Therapeutic Substance into Female Reproductive, Via Natural or Artificial Opening (ICD-10-PCS; 2019-06-04)
PROC: 10E0XZZ Delivery of Products of Conception, External Approach (ICD-10-PCS; principal; 2019-06-05)
PROC: 0DQR0ZZ Repair Anal Sphincter, Open Approach (ICD-10-PCS; 2019-06-05)
PROC: 10907ZC Drainage of Amniotic Fluid, Therapeutic from Products of Conception, Via Natural or Artificial Opening (ICD-10-PCS; 2019-06-05)
PROC: 0HQ9XZZ Repair Perineum Skin, External Approach (ICD-10-PCS; 2019-06-05)
DX: O24.410 Gestational diabetes mellitus in pregnancy, diet controlled (principal); Z37.0 Single live birth; O70.20 Third degree perineal laceration during delivery, unspecified; Z3A.39 39 weeks gestation of pregnancy; O99.214 Obesity complicating childbirth; E66.9 Obesity, unspecified; O70.0 First degree perineal laceration during delivery

== ENCOUNTER 2020-04-07 18:44 | Emergency (ER) | payer OTHER ==
[~2020-04-07] VITALS: Ht 167.6 cm; Wt 98.8 kg
[~2020-04-07 18:44] MED LIST changes: +COLA100C5 PO; +IBUP80TA PO; +TUMS500C PO
[2020-04-07] MEDS ORDERED: NS 1,000 ML IV ONE (19:15)
[2020-04-07] MEDS ORDERED: ONDANSETRON 4MG/2ML VIAL IV ONE (19:15)
[2020-04-07] MEDS ORDERED: KETOROLAC 30 MG/ML 1ML VIAL IV ONE (19:15)
[2020-04-07 19:30] LABS: BASO % 0.4 % (0.0-1.0); EOS # 0.1 10^3/uL (0.0-0.5); EOS % 1.2 % (0.0-3.0); HEMATOCRIT 43.8 % (36.0-47.0); HEMOGLOBIN 14.5 g/dl (12.0-15.5); LYMPH # 2.2 10^3/uL (1.5-5.0); LYMPH % 23.6 % (24.0-44.0); MEAN CORPUSCULAR HEMOGLOBIN 30.7 pg (27.0-33.0); MEAN CORPUSCULAR HGB CONC 33.1 g/dl (32.0-36.5); MEAN CORPUSCULAR VOLUME 92.6 fl (80.0-96.0); MONO # 0.5 10^3/uL (0.0-0.8); MONO % 5.7 % (0.0-5.0); NEUTROPHILS # 6.2 10^3/uL (1.5-8.5); NEUTROPHILS % 68.4 % (36.0-66.0); PLATELET COUNT, AUTOMATED 288 10^3/uL (150-450); RED BLOOD COUNT 4.73 10^6/uL (4.00-5.40); WHITE BLOOD COUNT 9.1 10^3/uL (4.0-10.0)
[2020-04-07] MEDS ORDERED: MORPHINE 4 MG/ML 1ML VIAL/SYRINGE (J2270) IV ONE (19:45)
[2020-04-07 19:55] LABS: ALBUMIN 4.3 GM/DL (3.2-5.2); BILIRUBIN,DIRECT 0.1 MG/DL (0.0-0.2); BILIRUBIN,TOTAL 0.5 MG/DL (0.2-1.0); TOTAL PROTEIN 8.3 GM/DL (6.4-8.2)
--- NOTE | 2020-04-07 20:08 | REPVR ---
PROCEDURE INFORMATION: Exam: CT Abdomen And Pelvis Without Contrast Exam date and time: 04/07/2020 7:46 PM Age: 35 years old Clinical indication: Abdominal pain; Flank; Right; Additional info: Right flank pain TECHNIQUE: Imaging protocol: Computed tomography of the abdomen and pelvis without contrast. Axial, coronal and sagittal reformatted images were created and reviewed. Radiation optimization: All CT scans at this facility use at least one of these dose optimization techniques: automated exposure control; mA and/or kV adjustment per patient size (includes targeted exams where dose is matched to clinical indication); or iterative reconstruction. COMPARISON: No relevant prior studies available. FINDINGS: Liver: Unremarkable. Gallbladder and bile ducts: No radiodense gallstones. No biliary ductal dilatation. Pancreas: Unremarkable. Spleen: Unremarkable. Adrenals: Unremarkable. Kidneys and ureters: [id number] right-sided hydroureteronephrosis and perinephric/periureteral edema with a 5 mm calculus at the right UVJ or in the adjacent urinary bladder (axial image 134 and coronal image 58). Stomach and bowel: No bowel wall thickening. No obstruction. No pneumatosis. Appendix: Normal. Intraperitoneal space: No free fluid. No organized fluid collection. No free air. Vasculature: Unremarkable. No aneurysm. Lymph nodes: No pathologically enlarged lymph nodes. Bladder: Unremarkable. Reproductive: Unremarkable. Bones/joints: No acute osseous abnormality. Mild degenerative changes. Soft tissues: Unremarkable. IMPRESSION: 1. [id number] right-sided hydroureteronephrosis and perinephric/periureteral edema with a 5 mm calculus at the right UVJ or in the adjacent urinary bladder. 2. Additional findings, as above. Electronically signed by: Nick Hernandez On 04/07/2020 20:07:42 PM
[2020-04-07] MEDS ORDERED: ONDA4TAB6 PO (20:34)
[2020-04-07] MEDS ORDERED: IBUP80TA PO (20:34)
[2020-04-07] MEDS ORDERED: ONDANSETRON 4 MG ORAL DISINTEGRATING TAB PO ONE (20:45)
[2020-04-07] MEDS ORDERED: NORCO, ANEXSIA 5/325MG TABLET (HYDROcodone/ACETAMINOPHEN) PO ONE (20:45)
[2020-04-07 20:55] VITALS: BP 131/84
== END 2020-04-07 21:02 | disposition home or self-care (01) ==
LOC: M ED 18:44
DX: N13.30 Unspecified hydronephrosis (principal); N20.1 Calculus of ureter; Z79.899 Other long term (current) drug therapy
CPT/HCPCS: 74176; 80047; 80076; 81001; 83690; 84702; 85025; 96361; 96374; 96375; 99284; J1885; J2270; J2405; Q0162

== ENCOUNTER → 2020-09-13 | Outpatient (CLI) | payer OTHER ==
[~2020-09-13] MED LIST changes: +ONDA4TAB6 PO
--- NOTE | 2020-09-16 10:51 | SLEEPCENT ---
DATE: 09/13/2020 ORDERED BY: Bonnie Hooper Nocturnal polysomnography was performed for evaluation of sleep physiology in this patient with a history of snoring and excessive somnolence. There was 8 hours and 6 minutes of data reviewed. There was 413.5 minutes of sleep identified. Sleep latency was prolonged at 48 minutes. REM sleep latency was prolonged at 289 minutes. Sleep architecture showed some fragmentation, multiple micro-arousals. Overall sleep efficiency was 86.1%. The electrocardiogram showed a sinus rhythm with some respiratory variability. Average heart rate 65 beats per minute. Rate ranged 55-85. EEG showed fairly normal waveforms for wake and sleep. There were only 7 respiratory events identified of 10 seconds in duration or greater. The events were primarily obstructive. Apnea-hypopnea index within normal limits at 1. Snoring was noted over the entire study. Arousals from respiratory events occurred only one time per hour, and there were no oxygen desaturations below 90%. There was significant limb activity noted. Four trains of 30 events were seen, Limb movement arousal index was 7.7. IMPRESSION: 1. Possible periodic limb movement disorder (G47.61). Limb movement arousal index 7.7. 2. Significant snoring. RECOMMENDATION: Interventions to reduce the frequency of arousal from limb activity may improve the quality of the patient's sleep. MTDD
== END ==
LOC: M SLEEP 20:00
PROVIDERS: ATTEND Nurse Practitioner Family
DX: R06.83 Snoring (principal)

== ENCOUNTER → 2021-07-14 | Outpatient (CLI) | payer OTHER ==
[~2021-07-14] MED LIST changes: +ACET-683 PO; +ASPI81CH33 PO; +DIBU28OI2 TOP; +PRENTAB9 PO; +ZOLO100T PO
== END ==
LOC: M RAD 14:31
PROVIDERS: ATTEND Registered Nurse Maternal Newborn
DX: O36.60X1 Maternal care for excessive fetal growth, unspecified trimester, fetus 1 (principal); Z3A.27 27 weeks gestation of pregnancy

== ENCOUNTER 2021-09-24 05:39 | Inpatient (IN) | payer OTHER ==
[~2021-09-24] VITALS: Ht 167.6 cm; Wt 110.4 kg
[2021-09-24] VITALS (37 sets, daily range): BP systolic 119–168; BP diastolic 55–96
[~2021-09-24 05:39] MED LIST changes: -ACET-683 PO; -ASPI81CH33 PO; -DIBU28OI2 TOP; -PRENTAB9 PO; -ZOLO100T PO
[2021-09-24 08:44] LABS: HEMATOCRIT 35.1 % (36.0-47.0); HEMOGLOBIN 11.6 g/dl (12.0-15.5); MEAN CORPUSCULAR HEMOGLOBIN 30.9 pg (27.0-33.0); MEAN CORPUSCULAR VOLUME 93.4 fl (80.0-96.0); PLATELET COUNT, AUTOMATED 204 10^3/uL (150-450); RED BLOOD COUNT 3.76 10^6/uL (4.00-5.40); WHITE BLOOD COUNT 10.3 10^3/uL (4.0-10.0)
[2021-09-24] MEDS ORDERED: ASPI81CH33 PO (09:43)
[2021-09-24] MEDS ORDERED: PRENTAB9 PO (09:43)
[2021-09-24] MEDS ORDERED: TUMS500C PO (09:43)
[2021-09-24] MEDS ORDERED: OXYTOCIN 30 UNITS IN 0.9% NaCl 500ML IV BAG (J2590) As Ordered ONE ×2 (13:37→20:37)
[2021-09-24] MEDS ORDERED: OXYTOCIN DRIP 30 UNITS in IV 1 EA IV SCH ×5 (13:40→20:30)
[2021-09-24] MEDS: LR 1,000 ML IV SCH ×2 (13:56→18:35)
[2021-09-24] MEDS ORDERED: FENTANYL 2MCG/ML ROPIVACAINE 0.2% IN 0.9% NACL 100ML IVBAG As Ordered ONE (18:22)
[2021-09-24] MEDS ORDERED: FENTANYL/ROPIVACAINE/NACL BAG 100 ML EPIDURAL SCH (18:30)
[2021-09-24] MEDS ORDERED: LACTATED RINGER'S 1000 ML IV PRN (18:30)
[2021-09-24] MEDS ORDERED: ONDANSETRON 4MG/2ML VIAL IV PRN ×2 (18:30→20:30)
[2021-09-24] MEDS ORDERED: REFRIGERATOR IV KEYS XX PRN (18:30)
[2021-09-24] MEDS ORDERED: NALOXONE INJ 0.4MG/1ML VIAL (J2310 PER 1MG) IV PRN (18:30)
[2021-09-24] MEDS ORDERED: diphenhydrAMINE 50MG/ML VIAL (J1200) IV PRN (18:30)
[2021-09-24] MEDS ORDERED: ePHEDrine SULFATE 25 MG/5 ML(5MG/ML) SYRINGE IV PRN (18:30)
[2021-09-24] MEDS ORDERED: EPIDURAL COMMENT XX SCH (18:30)
[2021-09-24] MEDS ORDERED: EPIDURAL/PCA KEYS XX PRN (18:30)
[2021-09-24] MEDS ORDERED: LIDOCAINE 1% MDV 20ML VIAL As Ordered ONE (20:05)
[2021-09-24] MEDS ORDERED: LR 1,000 ML IV SCH (20:30)
[2021-09-24] MEDS ORDERED: PROMETHAZINE 25 MG TAB PO PRN (20:30)
[2021-09-24] MEDS ORDERED: DIBUCAINE 1% OINTMENT 30GM TOP PRN (20:30)
[2021-09-24] MEDS ORDERED: METHYLERGONOVINE MALEATE 0.2 MG TAB PO PRN (20:30)
[2021-09-24] MEDS ORDERED: MEASLES,MUMPS,RUBELLA VACCINE INJ (MMR-II) (90707) SC SCH (20:30)
[2021-09-24] MEDS ORDERED: DOCUSATE SODIUM 100MG CAPSULE PO PRN (20:30)
[2021-09-24] MEDS ORDERED: LIDOCAINE 1% MDV 20ML VIAL INFIL ONE (20:30)
[2021-09-24] MEDS ORDERED: RHOGAM 300 MCG (1500 IU) INJ (J2790) IM SCH (20:30)
[2021-09-24 20:33] LABS: CORD GAS ABE A -5.5; CORD GAS HCO3 A 22.8 MEQ/L; CORD GAS O2 SAT A 31.7 %; CORD GAS PCO2 A 54.4 mmHg; CORD GAS PH A 7.241 UNITS; CORD GAS PO2 A 15.4 mmHg; CORD GAS SBC A 18.3 MEQ/L; CORD GAS TCO2 A 24.5 MEQ/L
[2021-09-24 20:34] LABS: CORD GAS ABE V -5.4; CORD GAS HCO3 V 20.1 MEQ/L; CORD GAS O2 SAT V 72.6 %; CORD GAS PCO2 V 39.8 mmHg; CORD GAS PH V 7.322 UNITS; CORD GAS PO2 V 27.7 mmHg; CORD GAS SBC V 19.4 MEQ/L; CORD GAS TCO2 V 21.4 MEQ/L
[2021-09-24] MEDS: IBUPROFEN 800 MG TAB PO SCH (23:25)
[2021-09-24] MEDS: ACETAMINOPHEN 500 MG TAB PO SCH (23:49)
[2021-09-25 06:00] VITALS: BP 129/69
[2021-09-25] MEDS: ACETAMINOPHEN 500 MG TAB PO SCH ×3 (06:00→18:00)
[2021-09-25] MEDS: IBUPROFEN 800 MG TAB PO SCH ×3 (06:19→21:46)
[2021-09-25 07:56] LABS: HEMATOCRIT 31.4 % (36.0-47.0); HEMOGLOBIN 10.4 g/dl (12.0-15.5); MEAN CORPUSCULAR HGB CONC 33.1 g/dl (32.0-36.5); MEAN CORPUSCULAR VOLUME 93.5 fl (80.0-96.0); PLATELET COUNT, AUTOMATED 170 10^3/uL (150-450); RED BLOOD COUNT 3.36 10^6/uL (4.00-5.40); WHITE BLOOD COUNT 11.3 10^3/uL (4.0-10.0)
[2021-09-25] MEDS ORDERED: SLF 3 ML SYR IV PRN (08:05)
[2021-09-25] MEDS ORDERED: INFLUENZA QUADRIVALENT PF VACCINE 0.5ML SYRINGE IM ONE (09:00)
[2021-09-25] MEDS ORDERED: SERTRALINE HCL 25 MG TABLET PO SCH (09:00)
[2021-09-25] MEDS: PRENATAL VITAMINS CHEWABLE TABLET PO SCH (09:28)
[2021-09-25] MEDS ORDERED: SLF 3 ML SYR IV SCH (14:00)
[2021-09-25 18:28] VITALS: BP 133/64
[2021-09-26] MEDS: IBUPROFEN 800 MG TAB PO SCH (05:49)
[2021-09-26] MEDS: ACETAMINOPHEN 500 MG TAB PO SCH ×3 (05:50→11:41)
[2021-09-26 06:00] VITALS: BP 142/79
[2021-09-26] MEDS: PRENATAL VITAMINS CHEWABLE TABLET PO SCH (08:50)
[2021-09-26] MEDS ORDERED: SERTRALINE 100 MG TAB PO SCH (09:00)
[2021-09-26] MEDS ORDERED: IBUP80TA PO (11:00)
[2021-09-26] MEDS ORDERED: ACET-683 PO (11:00)
[2021-09-26] MEDS ORDERED: DIBU28OI2 TOP (11:00)
[2021-12-19] MEDS ORDERED: ZOLO100T PO (07:31)
== END 2021-09-26 14:11 | disposition home or self-care (01) | DRG 807 ==
LOC: M LDO 05:39 → M LDI 07:01 → M OBS 22:32
PROVIDERS: ADMIT Obstetrics & Gynecology; ATTEND Obstetrics & Gynecology
PROC: 10E0XZZ Delivery of Products of Conception, External Approach (ICD-10-PCS; principal; 2021-09-24)
PROC: 0KQM0ZZ Repair Perineum Muscle, Open Approach (ICD-10-PCS; 2021-09-24)
DX: O42.02 Full-term premature rupture of membranes, onset of labor within 24 hours of rupture (principal); Z37.0 Single live birth; Z3A.37 37 weeks gestation of pregnancy; O99.344 Other mental disorders complicating childbirth; F41.9 Anxiety disorder, unspecified; F32.A Depression, unspecified; O99.214 Obesity complicating childbirth; E66.9 Obesity, unspecified; O09.523 Supervision of elderly multigravida, third trimester; O24.420 Gestational diabetes mellitus in childbirth, diet controlled; O69.81X0 Labor and delivery complicated by cord around neck, without compression, not applicable or unspecified; O70.1 Second degree perineal laceration during delivery

== ENCOUNTER 2021-12-26 08:00 | Day surgery (SDC) | payer OTHER ==
[~2021-12-26] VITALS: Ht 165.1 cm; Wt 105.7 kg
[~2021-12-26 08:00] MED LIST changes: +ACET-683 PO; +ASPI81CH33 PO; +DIBU28OI2 TOP; +LIDOCAINE 1% MDV 20ML VIAL SQ PRN; +LR 1,000 ML IV ONE; +PRENTAB9 PO; +ZOLO100T PO
[2021-12-26] MEDS ORDERED: ONDANSETRON 4MG/2ML VIAL As Ordered ONE (08:38)
[2021-12-26] MEDS ORDERED: LIDOCAINE 2% 100MG/5ML SDV (FOR ANES.) As Ordered ONE (08:38)
[2021-12-26] MEDS ORDERED: MIDAZOLAM INJ 2MG/2ML VIAL (J2250 PER 1MG) As Ordered ONE (08:38)
[2021-12-26] MEDS ORDERED: propofoL 200 MG/20 ML VIAL As Ordered ONE (08:38)
[2021-12-26] MEDS ORDERED: dexameTHASONE 4 MG/ML 1ML VIAL (J1100 PER 1MG) As Ordered ONE (08:38)
[2021-12-26] MEDS ORDERED: fentaNYL 100 MCG/2 ML INJECTION As Ordered ONE (08:38)
[2021-12-26 08:50] LABS: HEMATOCRIT 40.2 % (36.0-47.0); HEMOGLOBIN 13.4 g/dl (12.0-15.5); MEAN CORPUSCULAR HEMOGLOBIN 30.3 pg (27.0-33.0); MEAN CORPUSCULAR HGB CONC 33.3 g/dl (32.0-36.5); PLATELET COUNT, AUTOMATED 238 10^3/uL (150-450); RED BLOOD COUNT 4.42 10^6/uL (4.00-5.40); WHITE BLOOD COUNT 8.2 10^3/uL (4.0-10.0)
[2021-12-26] MEDS ORDERED: ROCURONIUM BROMIDE 50 MG/5 ML VIAL As Ordered ONE (09:23)
[2021-12-26 09:30] LABS: HCG, SERUM QUALITATIVE NEGATIVE (NEGATIVE)
[2021-12-26] MEDS ORDERED: BUPIVACAINE HCL 0.5% 30 ML VIAL As Ordered ONE (10:17)
[2021-12-26] MEDS ORDERED: SUGAMMADEX SODIUM 500 MG/5 ML VIAL (BRIDION) As Ordered ONE (12:27)
[2021-12-26] MEDS ORDERED: PERCOCET 5MG/325MG TAB PO PRN (13:15)
[2021-12-26] MEDS ORDERED: fentaNYL 100 MCG/2 ML INJECTION IV PRN (13:15)
[2021-12-26] MEDS ORDERED: ONDANSETRON 4MG/2ML VIAL IV PRN (13:15)
[2021-12-26] MEDS ORDERED: METOCLOPRAMIDE INJ 10MG/2ML VIAL (J2765 PER 1) IV PRN (13:15)
[2021-12-26] MEDS ORDERED: KETOROLAC 30 MG/ML 1ML VIAL IV PRN (13:15)
[2021-12-26] MEDS ORDERED: LR 1,000 ML IV SCH (13:15)
[2021-12-26 13:25] VITALS: BP 107/69
== END 2021-12-26 14:10 | disposition home or self-care (01) ==
LOC: M SDC 08:00
PROVIDERS: ATTEND Obstetrics & Gynecology
DX: Z30.2 Encounter for sterilization (principal); F32.9 Major depressive disorder, single episode, unspecified; E66.9 Obesity, unspecified; Z68.38 Body mass index [BMI] 38.0-38.9, adult; Z87.442 Personal history of urinary calculi; Z87.891 Personal history of nicotine dependence; Z79.899 Other long term (current) drug therapy
CPT/HCPCS: 36415; 58661; 84703; 85027; 86850; 86900; 86901; 88302; J1100; J2250; J2405; J3010

== ENCOUNTER 2022-01-16 11:41 | Emergency (ER) | payer OTHER ==
[~2022-01-16] VITALS: Ht 165.1 cm; Wt 105.7 kg
[~2022-01-16 11:41] MED LIST changes: -LIDOCAINE 1% MDV 20ML VIAL SQ PRN; -LR 1,000 ML IV ONE
[2022-01-16 14:52] VITALS: BP 128/71
== END 2022-01-16 15:17 | disposition home or self-care (01) ==
LOC: M ED 11:41
DX: H81.10 Benign paroxysmal vertigo, unspecified ear (principal); F33.9 Major depressive disorder, recurrent, unspecified; Z79.899 Other long term (current) drug therapy